=== PATIENT | female | born 1980 | race Caucasian/White ===

== ENCOUNTER 2017-09-22 08:25 | Emergency (ER) | END 2017-09-22 10:13 | disposition home or self-care (01) ==

== ENCOUNTER 2018-05-07 15:33 | Emergency (ER) | payer MEDICAID ==
[~2018-05-07] VITALS: Ht 165.1 cm; Wt 72.3 kg
[~2018-05-07 15:33] MED LIST: ALBU8.5H5 IH; CEPH-443 PO; IBUP-1542 PO; ONDA4TAB35 PO; POLY17PO6 PO; SENN-120 PO; SERT25TA PO
[2018-05-07 15:36] VITALS: BP 131/78; PULSE 79; RESP 20; Ht 165.1 cm; Wt 72.3 kg
--- NOTE | 2018-05-07 16:34 | ERD ---
ER Documentation Chief Complaint Chief Complaint cough & congestion sorethroat earache x3 wks HPI 38-year-old female, presents emergency department, requesting a prescription for an "injection for antibiotics", she states that she has been having upper respiratory symptoms for 3 weeks, including cough, congestion, bilateral ear pain but no fever or chills. She denies chest pain, no shortness of breath. She has been taking [id number] medication without improvement of the symptoms. ROS All systems reviewed and are negative except as per history of present illness. Medications Home Meds Active Scripts Ibuprofen* (Motrin*) 600 Mg Tab, 600 MG PO Q6, #30 TAB Prov:EVELYN CREWS PA-C 09/22/17 Cephalexin* (Keflex*) 500 Mg Capsule, 500 MG PO QID for 7 Days, CAP Prov:EVELYN CREWS PA-C 09/22/17 Ondansetron Hcl* (Zofran* ODT) 4 mg -ODT Tab.disper, 4 MG PO Q4H PRN for NAUSEA AND OR VOMITING for 10 Days, TAB Prov:JASPER WARREN I. KAIAKO KOHANGA REO 09/06/15 Polyethylene Glycol* (Miralax*) 17 Gm Powd.pack, 17 GM PO DAILY, #30 PACKET Prov:JASPER WARREN I. KAIAKO KOHANGA REO 09/06/15 Sennosides* (Senna Lax*) 8.6 Mg Tablet, 1 TAB PO Q12H PRN for CONSTIPATION, #10 TAB Prov:JASPER WARREN I. KAIAKO KOHANGA REO 09/06/15 Reported Medications Sertraline Hcl* (Zoloft*) 25 Mg Tablet, 25 MG PO DAILY, #30 TAB 09/03/15 Albuterol Sulfate* (Albuterol Sulfate* HFA) 8.5 Gm Hfa.aer.ad, 2 PUFF IH Q4H PRN for WHEEZING AND SOB, EA 01/29/15 Allergies Allergies: Coded Allergies: No Known Allergy (Unverified , 09/03/15) PMhx/Soc History of Surgery: No Anesthesia Reaction: No Hx Neurological Disorder: No Hx Respiratory Disorders: No Hx Cardiac Disorders: No Hx Psychiatric Problems: No Hx Miscellaneous Medical Probl: No Hx Alcohol Use: No Hx Substance Use: No Hx Tobacco Use: No Smoking Status: Never smoker FmHx Family History: No diabetes, No coronary disease Physical Exam Vitals Vital Signs Date Temp Pulse Resp B/P (MAP) Pulse Ox O2 O2 Flow FiO2 Time Delivery Rate 05/07/18 97.4 79 20 131/78 97 15:36 (95) Physical Exam Const: No acute distress Head: Atraumatic Eyes: Normal Conjunctiva ENT: Bilateral erythematous canals with edema, tympanic membranes normal. Normal nose and Mouth. Neck: Full range of motion. No meningismus. Resp: Clear to auscultation bilaterally Cardio: Regular rate and rhythm, no murmurs Abd: Soft, non tender, non distended. Normal bowel sounds Skin: No petechiae or rashes Back: No midline or flank tenderness Ext: No cyanosis, or edema Neur: Awake and alert Psych: Normal Mood and Affect Procedures/MDM Differential diagnosis include but not limited to: Respiratory infection bacterial/viral/fungal. Asthma, pneumonitis, allergies, GERD. Less likely f oreign body aspiration, cardiac related, aspiration pneumonia, malignancy. Physical examination and clinical presentation consistent most likely with viral syndrome and mild otitis externa. During the ED course the patient remained stable, no new complaints. Clinical impression discussed with the patient who agrees with management. The patient is stable to be treated outpatient and will be discharged home. antibiotics not indicated at this time. The patient is requesting a prescription for antibiotics, a prescription will be given with instructions to continue symptomatic and conservative management for 3 days, trying to avoid use of unnecessary antibiotics due to the possible side effects and complications. if there is no improvement of the symptoms in 72 hours, okay to start antibiotics. some side effects of prescribed medications (headache, rash, nausea, vomiting, diarrhea, drowsiness, hypertension, interactions with other medications) were reviewed. The patient was instructed to follow up with the primary care provider in the next 48h. If symptoms persist, worsen or new symptoms develop, then patient should return to the ED immediately. Disclaimer: Inadvertent spelling and grammatical errors are likely due to EHR/dictation software use and do not reflect on the overall quality of patient care. Also, please note that the electronic time recorded on this note does not necessarily reflect the actual time of the patient encounter. Departure Diagnosis: Primary Impression: Upper respiratory infection Additional Impression: Otitis externa Condition: Stable Additional Instructions: Muchas kristin por [facility] para [place] servicio. Esperamos que en [place] visita a la kaylin de emergencia [place] problema medico haya sido solucionado y que se sienta mucho mejor. Para estar seguros que [place] mejoria sigue en proceso, le pedimos el favor de hacer peyton raaft de seguimiento medico con [place] doctor primario en los proximos 2-4 kaur. Lleve con usted estos documentos y las medicinas recetadas. Si patricio sintomas empeoran, NO SE ESPERE, por favor regrese a kaylin de emergencia INMEDIATAMENTE. En evelia que usted no tenga un mdico de atencin primaria: Llame al mdico o clnica comunitaria de referencia que aparece abajo sulema las horas de consultorio para hacer peyton rafat para que le vean. CLINICAS: [facility] [phone] [facility] [phone] [facility] [phone] [facility] [phone] [facility] [phone] [id number] [facility]. [phone] OMAR LASSITER MD May 07, 2018 16:34
[2018-05-07] MEDS ORDERED: FEXO180T13 PO (17:02)
[2018-05-07] MEDS ORDERED: NPH10OT BOTH EARS (17:02)
[2018-05-07] MEDS ORDERED: AMOX500C2 PO (17:02)
== END 2018-05-07 17:17 | disposition home or self-care (01) ==
LOC: FTE 15:33
DX: J06.9 Acute upper respiratory infection, unspecified (principal); H60.93 Unspecified otitis externa, bilateral
CPT/HCPCS: 99283

== ENCOUNTER 2018-07-02 12:06 | Emergency (ER) | payer MEDICAID ==
[~2018-07-02] VITALS: Ht 165.1 cm; Wt 71.0 kg
[~2018-07-02 12:06] MED LIST changes: +AMOX500C2 PO; +FEXO180T13 PO; +NPH10OT BOTH EARS
[2018-07-02 12:22] VITALS: Ht 165.1 cm; Wt 71.0 kg
[2018-07-02] MEDS ORDERED: LIDOCAINE/MYLANTA 40 ML BTL PO STA (13:40)
[2018-07-02] MEDS ORDERED: BELLADONNA/PHENOBARBITAL TAB PO STA (13:40)
[2018-07-02] MEDS ORDERED: DIPHENHYDRAMINE 50 MG CAP PO ONE (14:00)
[2018-07-02] MEDS ORDERED: PRED50 PO (15:17)
[2018-07-02] MEDS ORDERED: BEN50 PO (15:19)
[2018-07-02] MEDS ORDERED: FAMO-96 PO (15:19)
[2018-07-02 15:29] VITALS: BP 132/82; PULSE 69; RESP 18
--- NOTE | 2018-07-02 22:16 | ERD ---
ER Documentation Chief Complaint Chief Complaint PT REPORTS ITCHY MOUTH/HEAD/ARMS AFTER EATING CHICKEN 2 WKS AGO HPI This is a 38-year-old female with no past medical history who presents to the emergency department complaining of pruritus around her mouth upper extremities face is been intermittent for the past 2 weeks. She stated it began after she ate chicken at a restaurant. She feels that she could have had an allergic diogo ction. She is been complaining of abdominal intermittent cramping that is worse whenever she eats. She feels that her stomach is bloated. She is taken Zyrtec but she states this is not improve her symptoms. She denies any swelling of her lips or tongue. She had no fevers or shaking or chills. She denies any frequency urgency or dysuria. No shortness of breath at rest or exertion. No chest pain or pressure. ROS All systems reviewed and are negative except as per history of present illness. Medications Home Meds Active Scripts Famotidine* (Pepcid*) 20 Mg Tablet, 20 MG PO BID for 10 Days, TAB Prov:CONRAD HYLTON MD 07/02/18 Diphenhydramine Hcl* (Benadryl*) 50 Mg Cap, 50 MG PO Q6H PRN for ITCHING/RASH, #30 CAP Prov:CONRAD HYLTON MD 07/02/18 Prednisone (Prednisone) 50 Mg Tab, 50 MG PO ONCE for 5 Days, TAB Prov:CONRAD HYLTON MD 07/02/18 Fexofenadine Hcl* (Fexofenadine Hcl*) 180 Mg Tablet, 180 MG PO DAILY, #7 TAB Prov:OMAR LAMBERT MD 05/07/18 Amoxicillin* (Amoxicillin*) 500 Mg Cap, 500 MG PO TID for 7 Days, CAP Prov:OMAR LAMBERT MD 05/07/18 Neomycin/Polymyxin/Hydrocort* (Cortisporin* Otic) 10 Ml Susp, 4 DROP BOTH EARS QID for 7 Days, EA Prov:OMAR LAMBERT MD 05/07/18 Ibuprofen* (Motrin*) 600 Mg Tab, 600 MG PO Q6, #30 TAB Prov:EVELYN CREWS PA-C 09/22/17 Cephalexin* (Keflex*) 500 Mg Capsule, 500 MG PO QID for 7 Days, CAP Prov:EVELYN CREWS PA-C 09/22/17 Ondansetron Hcl* (Zofran* ODT) 4 mg -ODT Tab.disper, 4 MG PO Q4H PRN for NAUSEA AND OR VOMITING for 10 Days, TAB Prov:JASPER WARREN I. [employer] 09/06/15 Polyethylene Glycol* (Miralax*) 17 Gm Powd.pack, 17 GM PO DAILY, #30 PACKET Prov:JASPER WARREN I. [employer] 09/06/15 Sennosides* (Senna Lax*) 8.6 Mg Tablet, 1 TAB PO Q12H PRN for CONSTIPATION, #10 TAB Prov:JASPER WARREN I. [employer] 09/06/15 Reported Medications Sertraline Hcl* (Zoloft*) 25 Mg Tablet, 25 MG PO DAILY, #30 TAB 09/03/15 Albuterol Sulfate* (Albuterol Sulfate* HFA) 8.5 Gm Hfa.aer.ad, 2 PUFF IH Q4H PRN for WHEEZING AND SOB, EA 01/29/15 Allergies Allergies: Coded Allergies: No Known Allergy (Unverified , 09/03/15) PMhx/Soc History of Surgery: No Anesthesia Reaction: No Hx Neurological Disorder: No Hx Respiratory Disorders: No Hx Cardiac Disorders: No Hx Psychiatric Problems: No Hx Miscellaneous Medical Probl: No Hx Alcohol Use: No Hx Substance Use: No Hx Tobacco Use: No Smoking Status: Never smoker Physical Exam Vitals Vital Signs Date Temp Pulse Resp B/P (MAP) Pulse Ox O2 O2 Flow FiO2 Time Delivery Rate 07/02/18 98.3 69 18 132/82 98 Room Air 15:29 (99) 07/02/18 98.3 72 18 137/79 96 12:22 (98) Physical Exam Constitutional:Well-developed. Well-nourished. HEENT:Normocephalic. Atraumatic.Pupils were equal round reactive to light. Moist mucous membranes.No tonsillar exudates. Lele. No angioedema. Neck: No nuchal rigidity. No lymphadenopathy. No posterior cervical spine tenderness or step-offs. Respiratory: Not using accessory muscles of respiration.Lungs were clear to auscultation bilaterally. No rhonchi. No rales. No wheezing. Cardiovascular: Regular rate regular rhythm.No murmurs. No rubs were appreciated.S1, S2 normal. Distal pulses are palpable 2+ bilaterally. GI: Abdomen was soft. Nontender. Non Distended. No pulsatile abdominal masses or bruits. No rebound. No guarding. Bowel sounds were present and normal. Muscle skeletal: Full range of motion of both the upper and lower extremities bilaterally.Normal muscle tone.No assymetrical calf tenderness or swelling. Skin: No petechia, no purpura. No lesions on the palms or the soles of the feet. No maculopapular rash. No erythremia. NEURO: Patient was alert, awake, orientated x3.No facial droop. Gait observed and normal with no ataxia.Speech had regular rate and rhythm. No focal neurological deficits. Result Diagram: 07/02/18 1359 07/02/18 1359 Results 24 hrs Laboratory Tests Test 07/02/18 13:59 White Blood Count 8.5 10^3/ul Red Blood Count 4.49 10^6/ul Hemoglobin 13.7 g/dl Hematocrit 41.2 % Mean Corpuscular Volume 91.8 fl Mean Corpuscular Hemoglobin 30.5 pg Mean Corpuscular Hemoglobin Concent 33.3 g/dl Red Cell Distribution Width 12.7 % Platelet Count 414 10^3/UL Mean Platelet Volume 8.8 fl Immature Granulocytes % 0.400 % Neutrophils % 57.1 % Lymphocytes % 28.2 % Monocytes % 7.3 % Eosinophils % 6.4 % Basophils % 0.6 % Nucleated Red Blood Cells % 0.0 /100WBC Immature Granulocytes # 0.030 10^3/ul Neutrophils # 4.9 10^3/ul Lymphocytes # 2.4 10^3/ul Monocytes # 0.6 10^3/ul Eosinophils # 0.5 10^3/ul Basophils # 0.1 10^3/ul Nucleated Red Blood Cells # 0.0 10^3/ul Sodium Level 140 mmol/L Potassium Level 3.8 mmol/L Chloride Level 105 mmol/L Carbon Dioxide Level 25 mmol/L Anion Gap 10 Blood Urea Nitrogen 11 mg/dl Creatinine 0.56 mg/dl Est Glomerular Filtrat Rate mL/min > 60 mL/min Glucose Level 98 mg/dl Calcium Level 9.3 mg/dl Total Bilirubin 0.3 mg/dl Direct Bilirubin 0.00 mg/dl Indirect Bilirubin 0.3 mg/dl Aspartate Amino Transf (AST/SGOT) 22 IU/L Alanine Aminotransferase (ALT/SGPT) 25 IU/L Alkaline Phosphatase 66 IU/L Total Protein 7.8 g/dl Albumin 4.2 g/dl Globulin 3.60 g/dl Albumin/Globulin Ratio 1.16 Amylase Level 87 U/L Lipase 196 U/L Current Medications Medications Dose Sig/Anjali Start Time Status Last (Trade) Ordered Route PRN Stop Time Admin Dose Reason Admin 40 ml ONCE STAT 07/02/18 DC 07/02/18 Miscellaneous PO 13:40 13:52 Medication 07/02/18 13:42 (Gi Cocktail (2)) Belladonna/ 2 tab ONCE STAT 07/02/18 DC Phenobarbital PO 13:40 () 07/02/18 13:42 50 mg ONCE ONCE 07/02/18 DC 07/02/18 Diphenhydrami PO 14:00 13:52 ne HCl 07/02/18 14:01 (Benadryl) Procedures/MDM This is a 38-year-old Maori speaking female that presented to the emergency department with intermittent pruritus for the past 2 weeks. The patient stated he is also been experiencing mild abdominal cramping. The patient had no peritoneal signs on physical exam. I did obtain ancillary laboratory work which showed no severe left leg abnormality. No evidence of pancreatitis. I did feel her symptoms could be a result of a mild allergic reaction. She had no signs of angioedema or airway compromise . She was given a prescription of Benadryl as well as Pepcid. She was instructed to return to the emergency department there is any worsening of her symptoms. The patient was discharged home in fair condition. They were instructed to return to the emergency department at any time if there was any worsening of their condition. The patient stated they would follow up with their PCP in the next 24-48 hours to initiate a suitable medication regimen under the care of their PCP as well as to allow their PCP to monitor any drug reactions. The patient was discharged home with prescriptions after they gave informed consent to the new medication. They were also fully informed by myself on the adverse effects and adverse drug interactions in order to provide adequate safeguards to prevent possible adverse reactions to medications. Departure Diagnosis: Primary Impression: Food allergy Condition: Fair Patient Instructions: Allergic Reaction, Other (General), Gastritis Vs. Ulcer CONRAD HYLTON MD Jul 02, 2018 22:16
== END 2018-07-02 15:34 | disposition home or self-care (01) ==
LOC: E/R 12:06
DX: T78.1XXA Other adverse food reactions, not elsewhere classified, initial encounter (principal); L29.9 Pruritus, unspecified
CPT/HCPCS: 80053; 82150; 83690; 85025; Z7502; Z7610; 99283